=== PATIENT | female | born 2000 | race Caucasian/White ===

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

== ENCOUNTER 2019-01-06 10:44 | Emergency (ER) | payer MEDICAID ==
--- NOTE | 2019-01-06 11:37 | EDPHY ---
H & P Time Seen by Provider: 01/06/19 10:55 HPI/ROS: CHIEF COMPLAINT: Right 5th digit injury HISTORY OF PRESENT ILLNESS: 18-year-old female with history of prosthetic nails this that yesterday she bumped her prosthetic nail and a partially broke off. She is EN route to the nail salon to have the rest of the nail removed however is complaining of pain to the distal phalanx. No discoloration. PRIMARY CARE PROVIDER: REVIEW OF SYSTEMS: 10 systems reviewed and are negative with exception of illness mentioned in the history of present illness PHYSICAL EXAM (Prior to examination, patient consented to physical exam, hands were washed and my usual and customary physical exam procedures followed) 1) GENERAL: Well-developed, well-nourished, alert and oriented. Appears to be in no acute distress. 2) HEAD: Normocephalic 3) HEENT: sclera anicteric 4) LUNGS: Breathing comfortably. 5) SKIN: Prosthetic nail is partially fractured. It is still attached to the nail. I am unable to visualize the nail bed. Unable to visualize presence of subungual hematoma or abnormality. Negative kanavel 6) MUSCULOSKELETAL: Tender to palpation distal phalanx. FDP FDS intact. No extensor deficits 7) NEUROLOGIC: Full sensation intact distally. Smoking Status: Never smoked Constitutional: Initial Vital Signs Temperature (C) 36.7 C 01/06/19 10:47 Heart Rate 80 01/06/19 10:47 Respiratory Rate 14 01/06/19 10:47 Blood Pressure 115/85 H 01/06/19 10:47 O2 Sat (%) 99 01/06/19 10:47 O2 Delivery Mode Room Air Allergies/Adverse Reactions: No Known Allergies Allergy (Verified 10/20/18 17:45) Home Medications: Medication Instructions Recorded NK [No Known Home Meds] 10/24/17 MDM/Departure - MDM Imaging Results: Imaging Impressions Finger X-Ray 01/06/19 11:04 Impression: Right fifth digit negative for fracture. Images reviewed myself Procedures: Procedure: Digital nerve block Indication: Analgesia I explained the indications, risks and benefits for both laceration repair and anesthetic administration. Verbal consent was obtained from the patient. The 5th digit was anesthetized using 0.5% bupivicaine without epinephrine digital nerve block. Patient tolerated procedure well ED Course/Re-evaluation: 12:20 p.m.: Re-evaluation after digital nerve block achieving anesthesia. I have recommended removal of the prosthetic nail as I am unable to visualize the subungual space and subungual hematoma or abscess is not ruled out. She declines this stating that she has an appointment with her nail salon this afternoon. She has been warned of the risks of not visualizing the subungual region including, but not limited to, non diagnosis subungual hematoma, subungual abscess. Doubt felon, doubt paronychia, doubt cellulitis, doubt infectious tenosynovitis in absence of kanavel sign. I think she is safe for discharge. Patient feels comfortable being discharged. All questions and concerns addressed by myself. Patient given my usual and customary discharge precautions and instructions regarding their clinical impression. Care of patient under supervision of secondary supervising physician Dr Au . - Depart Disposition: Home, Routine, Self-Care Clinical Impression: Fingernail injury Condition: Good Instructions: Finger Sprain (ED) Additional Instructions: You have declined removing the nail. You have been warned that a collection of blood or infection under nail bed has not been ruled out. Return to the ER if you develop redness, swelling, discharge, warmth to the wound, red streaks going up your arm, or any other symptoms that concern you. Referrals: Darshana Kim NP [Primary Care Provider] - 1-2 days without fail
[2019-01-06 13:02] VITALS: BP 112/78
== END 2019-01-06 13:02 | disposition home or self-care (01) ==
PROC: 3E0T3BZ Introduction of Anesthetic Agent into Peripheral Nerves and Plexi, Percutaneous Approach (ICD-10-PCS; principal; 2019-01-06)
DX: S69.91XA Unspecified injury of right wrist, hand and finger(s), initial encounter (principal); X58.XXXA Exposure to other specified factors, initial encounter